=== PATIENT | female | born 1940 | race Caucasian/White ===

== ENCOUNTER 2017-05-25 09:59 | Day surgery (SDC) | payer OTHER, BC ==
[~2017-05-25] VITALS: Ht 157.5 cm; Wt 59.9 kg
[~2017-05-25 09:59] MED LIST: ADVAIR 100/501 DISK IH; CRESTOR10 MG PO; FOSAMAX70 MG PO; SINGULAIR10 MG PO; ZESTORETIC 10-1 EAC1 PO
[2017-05-25] MEDS ORDERED: SINGULAIR10 MG PO (10:22)
[2017-05-25 10:26] VITALS: BP 137/76
[2017-05-25 15:43] VITALS: BP 144/70
[2017-05-25 16:42] VITALS: BP 132/62
[2017-05-25 20:15] VITALS: BP 135/63
== END 2017-05-25 20:20 | disposition home or self-care (01) ==
LOC: SDC 09:59
DX: M20.61 Acquired deformities of toe(s), unspecified, right foot (principal); M20.41 Other hammer toe(s) (acquired), right foot; M24.574 Contracture, right foot; S93.144A Subluxation of metatarsophalangeal joint of right lesser toe(s), initial encounter; I10 Essential (primary) hypertension; J44.9 Chronic obstructive pulmonary disease, unspecified; M06.9 Rheumatoid arthritis, unspecified
CPT/HCPCS: 73630; C1769; J0131; J0690; J1100; J1170; J2250; J2405; J2765; J3010; S0020